=== PATIENT | female | born 1980 | race Caucasian/White ===

== ENCOUNTER 2019-03-28 14:19 | Emergency (ER) | payer OTHER, SELFPAY ==
[2019-03-28 14:20] VITALS: BP 137/89; PULSE 98; RESP 15; TEMP 38.8; O2SAT 97; BMI 21.8
--- NOTE | 2019-03-28 15:00 | ED.VIS.GEN ---
History of Present Illness Chief Complaint: Rash Informant: Patient Onset: Yesterday Context: Gradual Onset Timing: Continuous Current Severity: Moderate Maximum Severity: Moderate Narrative: The patient presents to the emergency department with rash. She was recently diagnosed with urinary tract infection. She was placed on Bactrim. She states for the past 3 days, she has had myalgias and arthralgias. Today, she developed a rash, red rash. She also felt like she had a fever today. She denies any nausea or vomiting. She has never been on Bactrim before. She has otherwise been in her normal state of health. Prior similar symptoms: No Recent Illness/Hospitalization: Yes Past Medical History - Allergies and Home Meds Allergies/Adverse Reactions: Allergies No Known Allergies Allergy (Verified 03/28/19 14:20) Primary Care Physician: Ernie Gaming DO [Primary Care Provider] - Prior records reviewed: Yes Past Medical History: None Surgical History: no surgical history Lives: With Family Smoking Status: Never smoker Alcohol: None Drugs: None Review of Systems General: Reports: Fever, Malaise Eyes: Denies: Visual changes - bilaterally, Diplopia ENT: Denies: Rhinorrhea, Sore throat Cardiovascular: Denies: Chest pain, Palpitations Respiratory: Denies: Dyspnea, Cough, Dyspnea on exertion Gastrointestinal: Denies: Abdominal pain, Nausea, Vomiting, Diarrhea, Melena, Hematochezia Genitourinary: Reports: Hematuria Musculoskeletal: Denies: Back pain, Extremity Pain Skin: Reports: Rash Neurological: Denies: Headache, Weakness, Numbness Psych: Denies: Depression Endocrine: Denies: Polyuria Hematologic: Denies: Easy bruising Physical Exam Vital Signs/Narrative: Vital Signs Temp Pulse Resp BP Pulse Ox 03/28/19 14:20 101.9 F H 98 15 137/89 H 97 General: Well nourished, Well developed, No Acute Distress Head: Normocephalic, Atraumatic Eyes: Perrl, EOMI ENT: Moist mucous membranes, No rhinorrhea Neck: Supple, Nontender Cardiovascular: Regular rate, Regular rhythm, No murmurs Respiratory: No distress, CTA bilaterally, Chest nontender Abdomen: Soft, Nontender, Nondistended, Normal bowel sounds Back: Nontender, Normal Inspection Extremities: Nontender, No edema Skin: Normal color, Rash. Negative for: No rash - Diffuse erythema of the face, chest, and arms. No petechiae or purpura. Neurological: Alert, Oriented x3, Cranial nerves II-XII grossly intact, Normal Strength, Normal Sensation Psychological: Normal affect, Normal Mood Diagnostic/Tx/Re-eval Abnormal Lab Results 03/28/19 03/28/19 03/28/19 14:59 15:08 15:08 WBC 2.8 L RBC 4.20 Hgb 12.3 Hct 37.1 MCV 88.3 MCH 29.3 MCHC 33.2 RDW 14.0 RDW Differential 45.6 H Plt Count 207 MPV 9.6 Immature Gran % (Auto) 0.000 Neut % (Auto) 74.7 H Lymph % (Auto) 15.2 L [place] % (Auto) 7.2 Eos % (Auto) 2.9 Baso % (Auto) 0.0 Absolute Neuts (auto) 2.1 Absolute Lymphs (auto) 0.42 L Sodium 137 Potassium 4.3 Chloride 105 Carbon Dioxide 23.0 Anion Gap 9 BUN 15 Creatinine 0.99 Estim Creat Clear Calc 67.19 Est GFR (MDRD) Af Amer 81 Est GFR (MDRD) Non-Af 67 BUN/Creatinine Ratio 15.2 Glucose 99 Calcium 8.7 Total Bilirubin 0.20 AST 6 L ALT 15 Alkaline Phosphatase 79 Total Protein 7.6 Albumin 3.8 Globulin 3.8 Albumin/Globulin Ratio 1.0 Urine Color Yellow Urine Clarity Clear Urine pH 6.0 Ur Specific [place] 1.020 Urine Protein 15 H Urine Glucose (UA) Normal Urine Ketones Negative Urine Occult Blood 10 H Urine Nitrite Negative Urine Bilirubin Negative Urine Urobilinogen Normal Ur Leukocyte Esterase Negative Urine RBC 0 SEEN Urine WBC 0 SEEN Ur Squamous Epith Cells 0 SEEN Urine Bacteria 0 SEEN Urine Mucus 0 SEEN - Medical Decision Making The patient presents to the emergency department for rash. She has been on Bactrim. My suspicion is that this is a drug rash she also has a low-grade fever. Patient was given fluids and Tylenol. She had resolution of her fever. She does have a mild leukopenia, but the rest of her blood lines are unremarkable. Her urine shows no evidence of infection. We are going to stop the Bactrim. She will continue Tylenol as needed. Patient is comfortable with this plan of care and will be discharged home. ED Disposition - Plan for ED Patient: Diagnosis: Drug rash Instructions: DRUG REACTION, Other Referrals: Ernie Gaming DO [Primary Care Provider] - Additional Instructions: Stop the Bactrim
[2019-03-28] MEDS: Acetaminophen 500 MG Tablet 1000 MG PO (15:01)
[2019-03-28 15:08] LABS: Bacteria 0 SEEN /hpf (None Seen); Mucous, Urine 0 SEEN /hpf (<or=2+); Red Blood Cells-Urine 0 SEEN /hpf (0-5); Squamous Epithelial Cells - UA 0 SEEN /hpf (5-10); White Blood Cells 0 SEEN /hpf (0-5)
[2019-03-28] MEDS: 0.9% Normal Saline 1,000 ML 1000 ML IV (15:10)
[2019-03-28 15:18] VITALS: BP 119/79; PULSE 90; RESP 26; TEMP 37.7; O2SAT 100
[2019-03-28 15:18] LABS: Color, Urine Yellow (Yellow); Glucose, Dipstick Normal (Normal); Ketone-Dipstick Negative (Negative); Leukocyte Esterase-Dipstick Negative /ul (Negative); Nitrite-Dipstick Negative (Negative); Occult Blood-Urine 10 /ul (Negative); Protein-Dipstick 15 mg/dl (Negative); Urine Bilirubin Dipstick Negative (Negative); Urine Clarity Clear (Clear); Urine Urobilinogen Normal (Normal)
[2019-03-28 15:40] LABS: AST(SGOT) 6 U/L (15-37); Alanine Aminotransfer ALT/SGPT 15 U/L (13-56); Albumin, Serum 3.8 g/dL (3.2-5.0); Alkaline Phosphatase 79 U/L (45-117); Anion Gap 9 (5-15); BUN 15 mg/dL (7-18); BUN/Creat Ratio 15.2 RATIO (10-20); Calcium,Total 8.7 mg/dL (8.5-10.1); Chloride 105 mmol/L (98-107); Creatinine, Serum 0.99 mg/dL (0.55-1.02); EST Glomerular Filtration Rate 67 mL/min (>60); Est Glom Filt Rate - Afr Amer 81 mL/min (>60); Estimated Creatinine Clearance 67.19 ml/min; Globulin 3.8 g/dL (2.2-4.2); Glucose 99 mg/dL (74-106); Potassium 4.3 mmol/L (3.5-5.1); Protein, Total 7.6 g/dL (6.4-8.2); Sodium Level 137 mmol/L (136-145)
[2019-03-28 16:05] LABS: Absolute Lymphocyte Count 0.42 X10^3/ul (0.83-4.51); Absolute Neutrophil Count 2.1 X10^3/uL (2.0-7.7); Differential Indicated SCAN CRITERIA MET; Eosinophil# 0.08 X10^3/uL; Eosinophils% 2.9 % (0-5); Hematocrit 37.1 % (37-47); Hemoglobin 12.3 g/dl (12.0-15.0); Lymphocyte # 0.42 X10^3/ul (4.0); Lymphocyte % 15.2 % (19-41); Mean Corp Hgb Conc 33.2 g/gl (32-36); Mean Corpuscular Hgb 29.3 pg (27.0-32.0); Mean Corpuscular Volume 88.3 fL (81-99); Mean Platelet Vol. 9.6 fl (6.2-12.0); Monocyte% 7.2 % (0-10); Neutrophil # 2.07 X10^3/uL (2.7-7.7); Neutrophil % 74.7 % (47-70); POSITIVE COUNT NO; POSITIVE DIFFERENTIAL YES; POSITIVE MORPHOLOGY NO; Platelet Count 207 K/mm3 (150-450); RBC Distribution Width SD 45.6 fl (35.1-43.9); White Blood Count 2.8 K/mm3 (4.4-11.0)
[2019-03-28 16:11] VITALS: BP 112/72; PULSE 99; RESP 24; TEMP 37.5; O2SAT 97
[2019-03-28 16:35] LABS: Differential Comment SCANNED
[2019-03-28 16:48] VITALS: BP 106/67; PULSE 90; RESP 18; O2SAT 97
[2019-03-31 10:05] LABS: Pathologist Review Reviewed
== END 2019-03-28 16:51 | disposition home or self-care (01) ==
LOC: ED 15:12
PROVIDERS: Emergency Provider Emergency Medicine; Family Provider Family Medicine; PCP Family Medicine
DX: L27.0 Generalized skin eruption due to drugs and medicaments taken internally (principal); T36.8X5A Adverse effect of other systemic antibiotics, initial encounter; Y92.9 Unspecified place or not applicable
CPT/HCPCS: 80053; 81001; 85025; 96360; 96361; 99285; J7030